=== PATIENT | male | born 1990 | race Two or more races ===

== ENCOUNTER 2020-10-19 15:26 | Emergency (ER) | payer OTHER ==
[~2020-10-19] VITALS: Ht 177.8 cm; Wt 59.0 kg
[2020-10-19] MEDS ORDERED: NAPROXEN375 MG PO (22:02)
== END 2020-10-19 22:57 | disposition home or self-care (01) ==
LOC: ER 15:26
DX: S02.2XXA Fracture of nasal bones, initial encounter for closed fracture (principal); R42 Dizziness and giddiness; Y04.2XXA Assault by strike against or bumped into by another person, initial encounter; Y93.89 Activity, other specified; Y92.520 Airport as the place of occurrence of the external cause; Y99.8 Other external cause status; Z03.818 Encounter for observation for suspected exposure to other biological agents ruled out

== ENCOUNTER 2022-11-09 17:45 | Inpatient (IN) | payer OTHER ==
[~2022-11-09] VITALS: Ht 180.3 cm; Wt 68.0 kg
[~2022-11-09 17:45] MED LIST: ACETAMINOPHEN650 M2; NAPROXEN375 MG PO
--- NOTE | 2022-11-09 18:55 | NUR ---
PTE SE OBSERVA A/O X4. PTE VERBALIZA QUE DESDE ISABELL LLEVA CON [place] ANAL Y QUE PADECE DE HEMOROIDES.
--- NOTE | 2022-11-09 20:45 | NUR ---
SE EDUCA A PTE SOBRE TX MEDICO AXEL REFIERE ENTENDER. SE REYNA MUESTRAS DE LABORATORIO UTILIZANDO MEDIDAS ASEPTICAS. SE COLOCA H/L AP TE Y SE ADMINISTRAN MEDICAMENTOS LOS CUALES TOL[place]A. SE NOTIFICA RX PENDIENTE A REALIZAR.
[2022-11-12] MEDS ORDERED: NEURONTIN300 MG PO (14:53)
[2022-11-12] MEDS ORDERED: AMOX1TAB5 PO (14:53)
[2022-11-12] MEDS ORDERED: KETO10TA2 PO (14:53)
[2022-11-12] MEDS ORDERED: PERCOCET 5-3251 EACH PO (14:53)
== END 2022-11-12 17:28 | disposition home or self-care (01) | DRG 349 ==
LOC: ER 17:45 → SURH 20:25
PROVIDERS: ADMIT Colon & Rectal Surgery; ATTEND Colon & Rectal Surgery
PROC: 3E0T3BZ Introduction of Anesthetic Agent into Peripheral Nerves and Plexi, Percutaneous Approach (ICD-10-PCS; 2022-11-11)
PROC: 06BY0ZC Excision of Hemorrhoidal Plexus, Open Approach (ICD-10-PCS; principal; 2022-11-11 12:00)
DX: K64.8 Other hemorrhoids (principal); K64.4 Residual hemorrhoidal skin tags; K64.5 Perianal venous thrombosis; Z20.822 Contact with and (suspected) exposure to COVID-19

== ENCOUNTER 2022-11-19 18:46 | Emergency (ER) | payer OTHER ==
[~2022-11-19] VITALS: Ht 180.3 cm; Wt 63.5 kg
[~2022-11-19 18:46] MED LIST changes: +AMOX1TAB5 PO; +KETO10TA2 PO; +NEURONTIN300 MG PO; +PERCOCET 5-3251 EACH PO
== END 2022-11-19 21:36 | disposition home or self-care (01) ==
LOC: ER 18:46
DX: K62.5 Hemorrhage of anus and rectum (principal); Z98.890 Other specified postprocedural states